=== PATIENT | male | born 1990 | race Caucasian/White ===

== ENCOUNTER 2020-02-20 19:56 | Emergency (ER) | payer MEDICAID, SELFPAY ==
[2020-02-20 19:58] VITALS: BP 128/78; PULSE 100; RESP 18; TEMP 36.6; O2SAT 98; BMI 23.0
[2020-02-20 20:44] LABS: Absolute Lymphocyte Count 2.47 X10^3/uL (0.83-4.51); Basophil# 0.07 X10^3/uL; Basophil% 0.8 % (0-1); Eosinophil# 0.16 X10^3/uL; Eosinophils% 1.9 % (0-5); Hematocrit 38.9 % (40-54); Hemoglobin 12.4 g/dL (13.0-16.5); Lymphocyte # 2.47 X10^3/ul (4.0); Lymphocyte % 29.1 % (19-41); Mean Corp Hgb Conc 31.9 g/dL (32-36); Mean Corpuscular Volume 91.1 fL (80-94); Mean Platelet Vol. 9.4 fl (6.2-12.0); Monocyte# 0.78 X10^3/uL; Monocyte% 9.2 % (0-10); NRBC Flagged by Analyzer 0 % (0-5); Neutrophil # 4.98 X10^3/uL (2.7-7.7); Neutrophil % 58.6 % (47-70); POSITIVE MORPHOLOGY YES; Platelet Count 339 K/mm3 (150-450); RBC Distribution Width CV 14.1 % (11.6-14.6); RBC Distribution Width SD 46.3 fl (35.1-43.9); Red Blood Count 4.27 M/mm3 (4.6-6.2); White Blood Count 8.5 K/mm3 (4.4-11.0)
[2020-02-20] MEDS: 0.9% Normal Saline 1,000 ML 1000 ML IV ×2 (20:48→21:36)
[2020-02-20 20:53] LABS: Differential Indicated SCAN CRITERIA MET
[2020-02-20 21:11] LABS: Differential Comment SCANNED
[2020-02-20 21:30] LABS: Anion Gap 11 (5-15); BUN 18 mg/dL (7-18); BUN/Creat Ratio 13.7 RATIO (10-20); Calcium,Total 8.6 mg/dL (8.5-10.1); Chloride 100 mmol/L (98-107); Creatinine, Serum 1.31 mg/dL (0.70-1.30); EST Glomerular Filtration Rate 68 mL/min (>60); Est Glom Filt Rate - Afr Amer 82 mL/min (>60); Estimated Creatinine Clearance 86.49 ml/min; Glucose 469 mg/dL (74-106); Sodium Level 134 mmol/L (136-145)
--- NOTE | 2020-02-20 21:46 | ED.DCSUM_ITS ---
- ER Visit Summary Date of Service: 02/20/20 Chief Complaint: Elevated blood sugar History of Present Illness: The patient is a 29 M who reports that he moved to [place] from [place] 1 week ago. He does not have his glucose test strips. States he has had type 1 diabetes since 2007. He is supposed to be on 20 units of NovoLog 3 times daily with a sliding scale. Without his test strips he has not been doing his sliding scale. He is also on 30 units of Lantus nightly. Patient reports that his last dose of each of his insulins was an hour and a half ago. He reports he has been urinating frequently, but he denies polydipsia. He complains of a headache that 6 out of 10 severity. He has diabetic neuropathy. He denies any new numbness or weakness. His review of systems is otherwise negative. Physical Examination: Vitals: Stable. Afebrile. General: Well-nourished and well-developed. Head: Normocephalic atraumatic. Neck: Supple, no lymphadenopathy. No JVD. Nontender. Cardiovascular: Regular rate and rhythm. No murmurs. Respiratory: No respiratory distress. Clear to auscultation bilaterally. Abdominal: Soft, nontender, nondistended, normal bowel sounds. No guarding, rebound, or peritoneal signs. Back: Nontender. Extremities: Nontender, no edema. Skin: Normal color, no rash. Neurologic: Alert and oriented ?3. Cranial nerves II through XII are intact. Normal strength and sensation. Psych: Normal affect. Test Results: CBC shows an H&H 12.4 and 38.9. Chem-7 shows a sodium 134, glucose of 469, creatinine 1.31. His bicarb and anion gap are normal. His serum ketones are negative. Emergency Department Course and Treatment: Patient was given 2 L of normal saline. I did not give him any further insulin because he had taken NovoLog and Lantus just prior to arrival. Treatment Plan: Patient will be discharged with a prescription for glucose test strips. Instructed to resume taking his NovoLog as directed with a sliding scale. Instructed to follow-up with Dr. Dallas Ramirez iii in 1 to 2 weeks for another exam. Return to the emergency department for any worsening symptoms. Disposition: To home in improved and stable condition. Impression: 1. Hyperglycemia. 2. Type 1 diabetes mellitus. This note was generated with [employer] software. It may contain incorrect words, spelling, and punctuation that were not noted in review of the chart prior to signing ED Disposition - Plan for ED Patient: Disposition: Home or Assisted Living Instructions: ED Diabetic Hyperglycemia Prescriptions: Blood Sugar Diagnostic [Glucose Test Strip] 1 ea MC 4X/DAY #120 strip Prescription Printed Referrals: Dallas Ramirez III, MD [STAFF PHYSICIAN] - 1-2 Weeks
[2020-02-20 22:16] VITALS: BP 124/80; PULSE 88; RESP 16; O2SAT 98
[2020-02-20 22:41] LABS: Bedside Glucose 429 mg/dL (70-110)
[2020-02-20 22:41] LABS: Bedside Glucose 290 mg/dL (70-110)
== END 2020-02-20 22:17 | disposition home or self-care (01) ==
PROVIDERS: Emergency Provider Emergency Medicine
DX: E10.65 Type 1 diabetes mellitus with hyperglycemia (principal); E10.40 Type 1 diabetes mellitus with diabetic neuropathy, unspecified; J45.909 Unspecified asthma, uncomplicated; Z79.4 Long term (current) use of insulin; Z72.0 Tobacco use
CPT/HCPCS: 80048; 82009; 82962; 85025; 96360; 99283; J7030; A4216

== ENCOUNTER 2020-03-08 16:55 | Emergency (ER) | payer MEDICAID, SELFPAY ==
[2020-03-08 16:56] VITALS: BP 133/82; PULSE 86; RESP 18; TEMP 36.7; O2SAT 99; BMI 24.3
--- NOTE | 2020-03-08 17:10 | ED.VISSUMM ---
- ER Visit Summary Date of Service: 03/08/20 Chief Complaint: Elevated blood sugar History of Present Illness: The patient is a 29 M who presents with elevated blood sugar that was noticed today. Patient states his glucose meter has been reading high. Patient states he took 40 units of Humalog between 1 and 2 hours prior to arrival. Patient states that he feels weak all over. Patient admits to some increased urination. Patient states she normally takes sliding scale insulin plus Humalog with his meals. Patient denies any chest pain. Patient denies any nausea or vomiting. Patient denies any shortness of breath. Physical Examination: Vital signs are stable. Patient is afebrile. Patient is in no acute distress. Oral mucosa is pink and moist. Neck is supple. Trachea is midline. There is no JVD noted. Heart was regular rate and rhythm. Lungs are clear and equal bilaterally. Abdomen is soft. Bowel sounds are normal. There is no tenderness. There is no rebound or guarding noted. Skin is warm dry. Cranial nerves II through XII are intact. There are no focal motor or sensory deficits noted. Extremities are intact. There is no calf tenderness or edema. Test Results: Comprehensive metabolic profile showed a glucose of 388. Alk phos was slightly elevated at 164. Serum acetone was negative. Emergency Department Course and Treatment: Patient was given IV fluids. Patient was given a dose of Humalog 15 units. Patient was resting comfortably on reevaluation. Prior to discharge, the patient felt like his blood sugar was getting low. BGT was obtained and was 52. Patient was given a regular diet. BGT will be rechecked prior to discharge. Patient was instructed to follow-up with his primary care physician in 5 to 7 days. Patient understood and was agreeable with the plan. All questions were answered. Disposition: Discharge home Impression: 1. Hyperglycemia This note was generated with [employer] dictation software. It may contain incorrect words, spelling, and punctuation that were not noted in review of the chart prior to signing ED Disposition - Plan for ED Patient: Disposition: Home or Assisted Living Diagnosis: Hyperglycemia Instructions: ED Diabetic Hyperglycemia Referrals: Care Physician,No Primary [Primary Care Provider] - Mai Ahumada [NON-STAFF] - 3-5 Days
[2020-03-08] MEDS: 0.9% Normal Saline 1,000 ML 1000 ML IV (17:25)
[2020-03-08 17:26] VITALS: O2SAT 96
[2020-03-08 17:33] LABS: Absolute Lymphocyte Count 1.68 X10^3/uL (0.83-4.51); Absolute Neutrophil Count 4.1 X10^3/uL (2.0-7.7); Basophil# 0.07 X10^3/uL; Basophil% 1.1 % (0-1); Eosinophil# 0.11 X10^3/uL; Eosinophils% 1.7 % (0-5); Hemoglobin 12.6 g/dL (13.0-16.5); Lymphocyte # 1.68 X10^3/ul (4.0); Lymphocyte % 25.8 % (19-41); Mean Corp Hgb Conc 33.2 g/dL (32-36); Mean Corpuscular Volume 87.6 fL (80-94); Mean Platelet Vol. 9.1 fl (6.2-12.0); Monocyte# 0.52 X10^3/uL; NRBC Flagged by Analyzer 0 % (0-5); Neutrophil # 4.11 X10^3/uL (2.7-7.7); Neutrophil % 63.1 % (47-70); Platelet Count 353 K/mm3 (150-450); RBC Distribution Width CV 13.9 % (11.6-14.6); RBC Distribution Width SD 44.3 fl (35.1-43.9); Red Blood Count 4.34 M/mm3 (4.6-6.2); White Blood Count 6.5 K/mm3 (4.4-11.0)
[2020-03-08 17:56] LABS: ALB/GLOB Ratio 0.9 RATIO (0.9-2.4); AST(SGOT) 20 U/L (15-37); Alanine Aminotransfer ALT/SGPT 36 U/L (16-61); Albumin, Serum 3.3 g/dL (3.2-5.0); Alkaline Phosphatase 164 U/L (45-117); Anion Gap 9 (5-15); BUN 18 mg/dL (7-18); BUN/Creat Ratio 16.4 RATIO (10-20); Calcium,Total 8.9 mg/dL (8.5-10.1); Chloride 99 mmol/L (98-107); EST Glomerular Filtration Rate 83 mL/min (>60); Est Glom Filt Rate - Afr Amer 100 mL/min (>60); Globulin 3.6 g/dL (2.2-4.2); Glucose 388 mg/dL (74-106); Protein, Total 6.9 g/dL (6.4-8.2); Sodium Level 133 mmol/L (136-145)
--- NOTE | 2020-03-08 18:05 | RAD_ITS ---
STUDY: X-RAY CHEST REASON FOR EXAM: Male, 29 years old. HYPERGLYCEMIA, HX ASTHMA TECHNIQUE: 2 AP portable view of the chest. COMPARISON: None. FINDINGS: The lungs are clear and expanded. There is no demonstrated pleural abnormality. Normal size heart. Normal mediastinum and giacomo. Normal visualized pulmonary arteries. Normal visualized aortic arch and descending thoracic aorta. Normal visualized thoracic spine. Normal visualized ribs, clavicles, and shoulders. There is no demonstrated abnormality of the visualized soft tissue structures of the upper abdomen. RAD/CXR for Line Placement IMPRESSION: Normal x-ray examination of the chest. Electronically Signed: Bandar Jurado MD at 19:09 EDT , Service support ,
[2020-03-08 18:27] VITALS: BP 111/72; PULSE 76; RESP 16; O2SAT 99
[2020-03-08 19:16] VITALS: BP 89/53; PULSE 77; RESP 20; O2SAT 99
[2020-03-08 19:18] LABS: Bacteria 0 SEEN /hpf (None Seen); Mucous, Urine 0 SEEN /hpf (<or=2+); Red Blood Cells-Urine 0 SEEN /hpf (0-5); Squamous Epithelial Cells - UA 0 SEEN /hpf (0-5); White Blood Cells 0 SEEN /hpf (0-5)
[2020-03-08] MEDS: Insulin Lispro 100 UNIT/ML INSULN.PEN 15 UNIT SC (19:19)
[2020-03-08 19:20] LABS: Color, Urine Yellow (Yellow); Glucose, Dipstick 1000 mg/dl (Normal); Ketone-Dipstick 5 mg/dl (Negative); Leukocyte Esterase-Dipstick Negative /ul (Negative); Nitrite-Dipstick Negative (Negative); Occult Blood-Urine Negative /ul (Negative); Protein-Dipstick Negative (Negative); Specific Gravity, Urine 1.015 (1.002-1.030); Urine Bilirubin Dipstick Negative (Negative); Urine Clarity Clear (Clear); Urine Urobilinogen Normal (Normal)
[2020-03-08 21:16] LABS: Bedside Glucose 52 mg/dL (70-110)
[2020-03-08 21:45] LABS: Bedside Glucose 81 mg/dL (70-110)
[2020-03-08 21:49] VITALS: BP 113/69; RESP 18
[2020-03-09 07:00] LABS: Bedside Glucose > 500 mg/dL (70-110)
== END 2020-03-08 21:49 | disposition home or self-care (01) ==
PROVIDERS: Emergency Provider Emergency Medicine
DX: E11.65 Type 2 diabetes mellitus with hyperglycemia (principal); E11.40 Type 2 diabetes mellitus with diabetic neuropathy, unspecified; Z79.4 Long term (current) use of insulin; J45.909 Unspecified asthma, uncomplicated; Z72.0 Tobacco use; Z79.899 Other long term (current) drug therapy; R35.0 Frequency of micturition; R35.8 Other polyuria
CPT/HCPCS: 71045; 80053; 81001; 82009; 82962; 85025; 96360; 96361; 99285; J7030; A4216

== ENCOUNTER 2020-04-08 15:55 | Emergency (ER) | payer MEDICAID, SELFPAY ==
[2020-04-08 15:58] VITALS: BP 125/75; PULSE 108; RESP 16; TEMP 36.1; O2SAT 96; BMI 24.4
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
== END 2020-04-08 16:29 | disposition home or self-care (01) ==
PROVIDERS: Emergency Provider Emergency Medicine
DX: Z76.0 Encounter for issue of repeat prescription (principal); E11.9 Type 2 diabetes mellitus without complications; I10 Essential (primary) hypertension; J45.909 Unspecified asthma, uncomplicated; Z72.0 Tobacco use; Z79.4 Long term (current) use of insulin; Z79.899 Other long term (current) drug therapy
CPT/HCPCS: 99282

== ENCOUNTER 2020-04-26 06:42 | Emergency (ER) | payer MEDICAID, SELFPAY ==
[2020-04-26 06:43] VITALS: BP 116/76; PULSE 80; RESP 18; TEMP 36.2; O2SAT 99; BMI 25.0
--- NOTE | 2020-04-26 07:03 | RAD_ITS ---
STUDY: X-RAY CHEST REASON FOR EXAM: Male, 29 years old. SOB X 2 DAYS TECHNIQUE: Single AP portable view of the chest. COMPARISON: Comparison is made with prior study dated March 08, 2020. FINDINGS: EKG electrodes are seen. The lungs are clear and expanded. There is no demonstrated pleural abnormality. Normal size heart. Normal mediastinum and giacomo. Normal visualized pulmonary arteries. Normal visualized aortic arch and descending thoracic aorta. Normal visualized thoracic spine. Normal visualized ribs, clavicles, and shoulders. There is no demonstrated abnormality of the visualized soft tissue structures of the upper abdomen. RAD/Chest 1 View (Portable) IMPRESSION: Normal x-ray examination of the chest. Electronically Signed: Derrick Corado, at 8:34 EDT , Service support ,
[2020-04-26 07:44] LABS: Bacteria 0 SEEN /hpf (None Seen); Mucous, Urine 0 SEEN /hpf (<or=2+); Red Blood Cells-Urine 0 SEEN /hpf (0-5); White Blood Cells 0 SEEN /hpf (0-5)
[2020-04-26 07:46] LABS: Color, Urine Yellow (Yellow); Glucose, Dipstick 1000 mg/dl (Normal); Leukocyte Esterase-Dipstick Negative /ul (Negative); Nitrite-Dipstick Negative (Negative); Occult Blood-Urine Negative /ul (Negative); Protein-Dipstick Negative (Negative); Urine Bilirubin Dipstick Negative (Negative); Urine Clarity Clear (Clear); Urine Urobilinogen Normal (Normal)
[2020-04-26 07:46] LABS: Bedside Glucose 380 mg/dL (70-110)
--- NOTE | 2020-04-26 07:51 | ED.VIS.GEN ---
History of Present Illness Chief Complaint: Sore Throat Informant: Patient Onset: Yesterday Context: Gradual Onset Narrative: Patient is a 29-year-old male with history of type 1 diabetes mellitus presenting with sore throat and fatigue. Patient states he is had sore throat for the past few days. He states 3 days ago he went on a walk in the heat and that seemed to bother him. He states he feels short of breath but is because it hurts to breathe because his throat hurts. He denies any associated nasal congestion, fever, nausea or vomiting. He states he has a cough but it is because his throat is irritated. He does have a history of diabetes and states his blood sugar at 12:40 AM this morning was high. Patient not have an insulin pump. He cannot tell me what his blood sugars normally are. He denies any other complaints at this time. Past Medical History - Allergies and Home Meds Allergies/Adverse Reactions: Allergies No Known Allergies Allergy (Verified 04/26/20 07:31) Primary Care Physician: Care Physician,No Primary [Primary Care Provider] - Past Medical History: - - Diabetes mellitus type I Lives: Spouse/ Significant Other Smoking Status: Current every day smoker Review of Systems General: Reports: Malaise. Denies: Chills, Fever, Sweats Eyes: Denies: Visual changes - bilaterally, Diplopia ENT: Reports: Sore throat. Denies: Rhinorrhea Cardiovascular: Denies: Chest pain, Palpitations Respiratory: Denies: Dyspnea, Cough, Dyspnea on exertion Gastrointestinal: Denies: Abdominal pain, Nausea, Vomiting, Diarrhea, Melena, Hematochezia Genitourinary: Denies: Dysuria, Hematuria, Frequency Musculoskeletal: Denies: Back pain, Extremity Pain Skin: Denies: Rash, Wounds Neurological: Denies: Headache, Weakness, Numbness Physical Exam Vital Signs/Narrative: Vital Signs Temp Pulse Resp BP Pulse Ox 04/26/20 06:43 97.1 F L 80 18 116/76 99 Inital Vital Signs reviewed: Yes General: Well nourished, Well developed, No Acute Distress Head: Normocephalic, Atraumatic Eyes: Perrl, EOMI ENT: Moist mucous membranes, No rhinorrhea, TM's clear, - - Mild erythema of the oropharynx, significant edema. No exudate. Uvula is midline.. Negative for: Nasal congestion Neck: Supple, Nontender, No JVD Cardiovascular: Regular rate, Regular rhythm, No murmurs Respiratory: No distress, CTA bilaterally, Chest nontender Abdomen: Soft, Nontender, Nondistended, Normal bowel sounds Back: Nontender, Normal Inspection Extremities: Nontender, No edema Skin: Normal color, No rash Neurological: Alert, Oriented x3, Cranial nerves II-XII grossly intact, Normal Strength, Normal Sensation Psychological: Normal affect, Normal Mood Diagnostic/Tx/Re-eval Chest X-Ray - ED: 1 View, Read by ED Physician, Read by Radiologist, No Acute Disease Clinical Impression(s) from Imaging Studies Chest X-Ray 04/26/20 07:03 IMPRESSION: Normal x-ray examination of the chest. Electronically Signed: Derrick Corado, at 8:34 EDT , Service support , Laboratory Data 04/26/20 04/26/20 04/26/20 07:27 07:30 07:53 WBC 13.1 H RBC 4.43 L Hgb 13.0 Hct 39.6 L MCV 89.4 MCH 29.3 MCHC 32.8 RDW Std Deviation 40.9 RDW Coeff of Nicole 12.4 Plt Count 292 MPV 9.7 Immature Gran % (Auto) 0.500 Neut % (Auto) 78.0 H Lymph % (Auto) 10.5 L Rush % (Auto) 9.0 Eos % (Auto) 1.5 Baso % (Auto) 0.5 Absolute Neuts (auto) 10.2 H Absolute Lymphs (auto) 1.38 Nucleated RBC % 0 Sodium Potassium Chloride Carbon Dioxide Anion Gap BUN Creatinine Estim Creat Clear Calc Est GFR (MDRD) Af Amer Est GFR (MDRD) Non-Af BUN/Creatinine Ratio Glucose Calcium Urine Color Yellow Urine Clarity Clear Urine pH 7.0 Ur Specific Warren 1.010 Urine Protein Negative Urine Glucose (UA) 1000 H Urine Ketones 150 H Urine Occult Blood Negative Urine Nitrite Negative Urine Bilirubin Negative Urine Urobilinogen Normal Ur Leukocyte Esterase Negative Urine RBC 0 SEEN Urine WBC 0 SEEN Ur Squamous Epith Cells 0-5 SEEN Urine Bacteria 0 SEEN Urine Mucus 0 SEEN Acetone Level POC Glucose 380 H 07/08/20 07/08/20 07/08/20 07:53 07:53 10:05 WBC RBC Hgb Hct MCV MCH MCHC RDW Std Deviation RDW Coeff of Nicole Plt Count MPV Immature Gran % (Auto) Neut % (Auto) Lymph % (Auto) Rush % (Auto) Eos % (Auto) Baso % (Auto) Absolute Neuts (auto) Absolute Lymphs (auto) Nucleated RBC % Sodium 135 L Potassium 4.3 Chloride 100 Carbon Dioxide 28.0 Anion Gap 7 BUN 12 Creatinine 0.72 Estim Creat Clear Calc 158.33 Est GFR (MDRD) Af Amer 164 Est GFR (MDRD) Non-Af 136 BUN/Creatinine Ratio 16.8 Glucose 347 H Calcium 8.8 Urine Color Urine Clarity Urine pH Ur Specific Warren Urine Protein Urine Glucose (UA) Urine Ketones Urine Occult Blood Urine Nitrite Urine Bilirubin Urine Urobilinogen Ur Leukocyte Esterase Urine RBC Urine WBC Ur Squamous Epith Cells Urine Bacteria Urine Mucus Acetone Level SMALL H POC Glucose 389 H - Medical Decision Making Evaluated for generalized malaise and sore throat. He is a type I diabetic and states his blood sugars been running high lately. Patient is given 2 L of IV fluid. Strep swab is negative. He has signs of dehydration and small acetone but he does not appear to be in DKA. Repeat blood sugar after the fluids is 389. Patient is a mild leukocytosis of 13.1. No obvious pneumonia or UTI. Abdomen is soft and nontender. Patient is feeling better after IV fluids. He is counseled that likely has a viral pharyngitis. He is offered sliding-scale insulin for his blood sugar at discharge but declined stating he would rather just go home and take his insulin right before he eats. Patient is tolerating p.o. in the emergency room. He does not have a PCP as he is only been the area for 2 months. He is [facility] for [facility]. He is given return precautions. Patient verbalized agreement understand with this plan. He is discharged home in stable condition. ED Disposition - Plan for ED Patient: Disposition: Home or Assisted Living Diagnosis: Hyperglycemia due to type 1 diabetes mellitus, Dehydration, Viral pharyngitis Instructions: ED Pharyngitis Viral, ED Diabetic Hyperglycemia, ED Dehydration Adult Referrals: Mai Ahumada [NON-STAFF] - Additional Instructions: Please make sure you check your blood sugar when you get home and take an appropriate amount of insulin to prevent further hyperglycemia. Alternate Tylenol and ibuprofen as needed for your sore throat.
[2020-04-26 07:55] LABS: Ketone-Dipstick 150 mg/dl (Negative)
[2020-04-26 07:57] LABS: Squamous Epithelial Cells - UA 0-5 SEEN /hpf (0-5)
[2020-04-26] MEDS: 0.9% Normal Saline 1,000 ML 999 ML IV ×2 (07:59→09:08)
[2020-04-26 08:00] LABS: Absolute Lymphocyte Count 1.38 X10^3/uL (0.83-4.51); Absolute Neutrophil Count 10.2 X10^3/uL (2.0-7.7); Basophil# 0.07 X10^3/uL; Basophil% 0.5 % (0-1); Eosinophils% 1.5 % (0-5); Hematocrit 39.6 % (40-54); Lymphocyte # 1.38 X10^3/ul (4.0); Lymphocyte % 10.5 % (19-41); Mean Corp Hgb Conc 32.8 g/dL (32-36); Mean Corpuscular Hgb 29.3 pg (27.0-32.0); Mean Corpuscular Volume 89.4 fL (80-94); Mean Platelet Vol. 9.7 fl (6.2-12.0); Monocyte# 1.18 X10^3/uL; NRBC Flagged by Analyzer 0 % (0-5); Neutrophil # 10.21 X10^3/uL (2.7-7.7); Platelet Count 292 K/mm3 (150-450); RBC Distribution Width CV 12.4 % (11.6-14.6); RBC Distribution Width SD 40.9 fl (35.1-43.9); Red Blood Count 4.43 M/mm3 (4.6-6.2); White Blood Count 13.1 K/mm3 (4.4-11.0)
[2020-04-26] MEDS: Ketorolac 15 MG/ML Vial IV (08:09)
[2020-04-26 08:12] LABS: Anion Gap 7 (5-15); BUN 12 mg/dL (7-18); BUN/Creat Ratio 16.8 RATIO (10-20); Calcium,Total 8.8 mg/dL (8.5-10.1); Chloride 100 mmol/L (98-107); Creatinine, Serum 0.72 mg/dL (0.70-1.30); EST Glomerular Filtration Rate 136 mL/min (>60); Est Glom Filt Rate - Afr Amer 164 mL/min (>60); Estimated Creatinine Clearance 158.33 ml/min; Glucose 347 mg/dL (74-106); Potassium 4.3 mmol/L (3.5-5.1); Sodium Level 135 mmol/L (136-145)
[2020-04-26 10:11] LABS: Bedside Glucose 389 mg/dL (70-110)
[2020-04-26 10:33] VITALS: BP 100/79; PULSE 64; RESP 15; O2SAT 99
== END 2020-04-26 10:35 | disposition home or self-care (01) ==
PROVIDERS: Emergency Provider Emergency Medicine
DX: J02.9 Acute pharyngitis, unspecified (principal); E10.65 Type 1 diabetes mellitus with hyperglycemia; E86.0 Dehydration; F17.200 Nicotine dependence, unspecified, uncomplicated
CPT/HCPCS: 71045; 80048; 81001; 82009; 82962; 85025; 87077; 87880; 96361; 96374; 99285

== ENCOUNTER 2020-05-04 14:17 | Emergency (ER) | payer MEDICAID, SELFPAY ==
[2020-05-04 14:17] VITALS: BP 121/66; PULSE 89; RESP 18; TEMP 36.6; O2SAT 97; BMI 24.0
--- NOTE | 2020-05-04 14:50 | ED.DCSUM_ITS ---
History of Present Illness Chief Complaint: Dental Informant: Patient Narrative: Patient is a 29-year-old male who presents to the emergency department for dental pain. This started 3 days ago. Majority the pain is in the right lower jaw. He has had a history of dental infections in the past. He denies any systemic symptoms including fever/chills or nausea/vomiting. He states that his blood sugars have been running high. He is a known diabetic. States that his blood glucose monitor has been reading HI. He has been in DKA before in the past and he does not feel like he is in this currently. He has been taking ibuprofen for the pain but has not been giving him much relief. He is a current everyday smoker. Denies alcohol or drug use. Denies any issues with swallowing. No shortness of breath. No difficulty handling secretions. Past Medical History - Allergies and Home Meds Allergies/Adverse Reactions: Allergies No Known Allergies Allergy (Verified 05/04/20 14:20) Primary Care Physician: Joanna Sanches MD [STAFF PHYSICIAN] - 2 Days Past Medical History: - - Diabetes, asthma Smoking Status: Current every day smoker Alcohol: None Drugs: None Review of Systems All systems negative except as indicated General: Denies: Chills, Fever, Sweats Eyes: Denies: Visual changes - bilaterally, Diplopia ENT: Denies: Bilateral ear pain, Rhinorrhea, Sore throat Cardiovascular: Denies: Chest pain, Palpitations Respiratory: Denies: Dyspnea, Cough, Dyspnea on exertion Gastrointestinal: Denies: Abdominal pain, Nausea, Vomiting, Diarrhea, Melena, Hematochezia Genitourinary: Denies: Dysuria, Hematuria, Frequency Musculoskeletal: Denies: Back pain, Extremity Pain Skin: Denies: Rash, Wounds Neurological: Denies: Headache, Weakness, Numbness Physical Exam Vital Signs/Narrative: Vital Signs Temp Pulse Resp BP Pulse Ox 05/04/20 14:17 98 F 89 18 121/66 H 97 Inital Vital Signs reviewed: Yes General: Well nourished, Well developed, No Acute Distress Head: Normocephalic, Atraumatic Eyes: Perrl, EOMI ENT: Moist mucous membranes, No rhinorrhea, - - Patient has very poor dentition with multiple caries. Multiple missing teeth. No obvious abscess present. Oropharynx is clear. No muffled voice. No drooling. Neck: Supple, Nontender Cardiovascular: Regular rate, Regular rhythm, No murmurs Respiratory: No distress, CTA bilaterally, Chest nontender Abdomen: Soft, Nontender, Nondistended, Normal bowel sounds Back: Nontender, Normal Inspection Extremities: Nontender, No edema Skin: Normal color, No rash Neurological: Alert, Oriented x3, Cranial nerves II-XII grossly intact, Normal Strength, Normal Sensation Psychological: Normal affect, Normal Mood Diagnostic/Tx/Re-eval - Medical Decision Making Patient presents emerge department for dental pain. He has had dental abscesses before in the past. Never required drainage. Does not follow regularly with a dentist. Because he states that his blood sugars have been reading high we will check a [id number] glucose now. We will give the patient penicillin for treatment. Will give referral for a dentist. Patient's blood sugar was in the 500s. Did offer to place a IV and give IV fluids but he states he feels very well and is refusing this. We will give a dose of subcu insulin and recheck his blood sugar. He is given first dose of penicillin here in the emergency department. Will be sent home with prescription. He is to follow-up with his PCP. He is requesting a glucometer as his have not been reading well lately. I did discuss risk associated with continued to have his blood sugar elevated. Every time he has been here his blood sugar has been in the 3-400s. I did make a referral for PCP as well as the dentist. This time will discharge home in stable condition. Warning signs and symptoms for which to return to the emerge department are reviewed. He understands and is agreeable with this plan. ED Disposition - Plan for ED Patient: Disposition: Home or Assisted Living Diagnosis: Dental abscess, Hyperglycemia Instructions: Dental Abscess, ED Diabetic Hyperglycemia Prescriptions: Penicillin V Potassium 500 mg PO 4X/DAY #40 tab Transmission Status: Pending to [facility]30 Referrals: Joanna Sanches MD [STAFF PHYSICIAN] - 2 Days Additional Instructions: Please follow-up with dentist from provided list.
[2020-05-04 15:00] LABS: Bedside Glucose > 500 mg/dL (70-110)
[2020-05-04 15:01] VITALS: BP 132/76; PULSE 93; RESP 18; TEMP 37.2; O2SAT 97
[2020-05-04] MEDS: Penicillin Vk 250 MG Tablet 500 MG PO (15:26)
[2020-05-04] MEDS: Insulin Lispro 100 UNIT/ML INSULN.PEN 8 UNIT SC (15:28)
[2020-05-04 15:42] LABS: Absolute Lymphocyte Count 2.26 X10^3/uL (0.83-4.51); Basophil# 0.05 X10^3/uL; Basophil% 0.6 % (0-1); Eosinophil# 0.18 X10^3/uL; Eosinophils% 2.2 % (0-5); Hematocrit 37.1 % (40-54); Hemoglobin 12.1 g/dL (13.0-16.5); Lymphocyte # 2.26 X10^3/ul (4.0); Mean Corp Hgb Conc 32.6 g/dL (32-36); Mean Corpuscular Hgb 28.7 pg (27.0-32.0); Mean Corpuscular Volume 88.1 fL (80-94); Mean Platelet Vol. 9.6 fl (6.2-12.0); Monocyte# 0.86 X10^3/uL; Monocyte% 10.3 % (0-10); NRBC Flagged by Analyzer 0 % (0-5); Neutrophil % 59.7 % (47-70); Platelet Count 325 K/mm3 (150-450); RBC Distribution Width CV 12.3 % (11.6-14.6); RBC Distribution Width SD 39.5 fl (35.1-43.9); Red Blood Count 4.21 M/mm3 (4.6-6.2); White Blood Count 8.4 K/mm3 (4.4-11.0)
[2020-05-04 16:11] LABS: Anion Gap 4 (5-15); BUN 16 mg/dL (7-18); BUN/Creat Ratio 15.1 RATIO (10-20); Calcium,Total 8.1 mg/dL (8.5-10.1); Chloride 99 mmol/L (98-107); Creatinine, Serum 1.06 mg/dL (0.70-1.30); EST Glomerular Filtration Rate 86 mL/min (>60); Est Glom Filt Rate - Afr Amer 104 mL/min (>60); Estimated Creatinine Clearance 107.54 ml/min; Glucose 486 mg/dL (74-106); Potassium 4.6 mmol/L (3.5-5.1); Sodium Level 132 mmol/L (136-145)
[2020-05-04 16:28] VITALS: BP 113/70; PULSE 72; RESP 17; O2SAT 100
[2020-05-04 16:33] VITALS: BP 116/68; PULSE 73; RESP 19; TEMP 36.8; O2SAT 99
== END 2020-05-04 16:40 | disposition home or self-care (01) ==
PROVIDERS: Emergency Provider Emergency Medicine
DX: K04.7 Periapical abscess without sinus (principal); E11.65 Type 2 diabetes mellitus with hyperglycemia; J45.909 Unspecified asthma, uncomplicated; F17.200 Nicotine dependence, unspecified, uncomplicated; Z79.4 Long term (current) use of insulin; Z79.899 Other long term (current) drug therapy
CPT/HCPCS: 80048; 82962; 85025; 99283; A4216

== ENCOUNTER 2020-05-21 18:51 | Emergency (ER) | payer MEDICAID, SELFPAY ==
[2020-05-21 18:52] VITALS: BP 115/73; PULSE 85; RESP 16; TEMP 37.1; O2SAT 99; BMI 24.0
--- NOTE | 2020-05-21 19:43 | ED.DCSUM_ITS ---
- ER Visit Summary Date of Service: 05/21/20 Chief Complaint: Left buttock pain History of Present Illness: The patient is a 29 M type 1 diabetes. He states for 2 to 3 days has had a not on his left upper buttock. Denies any fever or chills. Complaining of pain. No prior history. Denies any drainage. Denies any other symptoms. Physical Examination: Young male complaining of pain vital signs stable afebrile. H EENT exam unremarkable. Neck nontender no lymphadenopathy. Lungs clear to auscultation bilaterally. Heart regular rhythm no murmur. Abdomen soft nontender normal bowel sounds no peritoneal signs. Extremities moves all 4. Calves are nontender without edema or cords. Dorsi plantarflexion intact. Normal program support assistant strength. Back nontender. Left buttock up near the crease there is a nodular area that feels solid consistent with either a pilonidal cyst or a p ilonidal abscess. It is tender to palpation. There is no cellulitis. Test Results: None Emergency Department Course and Treatment: Discussed with patient at length that this is either a pilonidal cyst or abscess. I explained that we need to I&D this and start him on antibiotics. He absolutely refused any I&D said it was too painful. I explained to him we can take care of his pain while were doing the procedure. He also denied an aspiration. He states he went to do warm soaks at home and just wants an antibiotic. I told him we can do that but almost assuredly he will end up back in here with this being larger and worse. Again he denies any type of I&D or aspiration. Treatment Plan: Tylenol and Motrin for pain. Keflex 4 times a day #30 no refill. Return when this gets worse and is too painful to have it drained like I have recommended today. Disposition: Discharge Impression: Left buttock pilonidal abscess History of type 1 diabetes Patient refused incision and drainage This note was generated with [employer] dictation software. It may contain incorrect words, spelling, and punctuation that were not noted in review of the chart prior to signing ED Disposition - Plan for ED Patient: Referrals: Mai Ahumada [Primary Care Provider] -
--- NOTE | 2020-05-21 19:45 | ED.DEP ---
ED Disposition - Plan for ED Patient: Disposition: Home or Assisted Living Instructions: ED Cyst Pilonidal Infec Abx Only Prescriptions: Cephalexin [Keflex] 500 mg PO Q6 #30 cap Prescription Printed Referrals: Mai Ahumada [Primary Care Provider] - As soon as possible Additional Instructions: Return the emergency department when this becomes too painful or you are feeling worse. This is either a pilonidal cyst or a pilonidal abscess and will need incision and drainage almost assuredly. Tylenol Motrin for pain. Keflex 4 times a day till gone. The antibiotic alone may not take care of this and most likely will not.
== END 2020-05-21 19:53 | disposition home or self-care (01) ==
PROVIDERS: Emergency Provider Emergency Medicine
DX: L05.01 Pilonidal cyst with abscess (principal); E10.9 Type 1 diabetes mellitus without complications; Z79.4 Long term (current) use of insulin; Z72.0 Tobacco use; Z79.899 Other long term (current) drug therapy
CPT/HCPCS: 99283

== ENCOUNTER 2020-05-25 07:06 | Emergency (ER) | payer MEDICAID, SELFPAY ==
[2020-05-25 07:07] VITALS: BP 117/100; PULSE 116; RESP 15; TEMP 36.6; O2SAT 99; BMI 25.1
[2020-05-25 07:17] VITALS: BP 117/100; PULSE 116; RESP 15; TEMP 36.6; O2SAT 99
--- NOTE | 2020-05-25 07:18 | ED.DCSUM_ITS ---
History of Present Illness Chief Complaint: Abscess Narrative: Patient presenting for evaluation due to I have a cyst on my left ass cheek. Patient informs me that this been going on over the course of about the last week. He reports that it started very small and he initially was trying to do warm soaks. He was here on the second, was evaluated and was recommended incision and drainage at that time. He stated that he wished not to have incision and drainage but wanted to try a course of antibiotics. He was placed on a course of Keflex, but despite this he still had worsening of the abscess with increase in pain. Patient denies to me that he has any constitutional symptoms such as fevers chills or sweats. He is never had any prior similar episodes in the past. Patient is a type I diabetic. Review of systems otherwise negative. Past Medical History - Allergies and Home Meds Allergies/Adverse Reactions: Allergies No Known Allergies Allergy (Verified 05/21/20 18:56) Primary Care Physician: Mai Ahumada [Primary Care Provider] - Prior records reviewed: Yes Past Medical History: - - Type 1 diabetes Surgical History: noncontributory Lives: With Family Smoking Status: Current every day smoker Alcohol: None Drugs: None Review of Systems General: Denies: Fever Eyes: Denies: Visual changes - bilaterally, Diplopia ENT: Denies: Rhinorrhea, Sore throat Cardiovascular: Denies: Chest pain, Palpitations Respiratory: Denies: Dyspnea, Cough, Dyspnea on exertion Gastrointestinal: Denies: Abdominal pain, Nausea, Vomiting, Diarrhea, Melena, Hematochezia Genitourinary: Denies: Dysuria, Hematuria, Frequency Musculoskeletal: Denies: Back pain, Extremity Pain Skin: Reports: Abscess Neurological: Denies: Headache, Weakness, Numbness Physical Exam Vital Signs/Narrative: Vital Signs Temp Pulse Resp BP Pulse Ox 05/25/20 07:17 97.8 F 116 H 15 117/100 H 99 05/25/20 07:07 97.8 F 116 H 15 117/100 H 99 Inital Vital Signs reviewed: Yes General: Well nourished, Well developed Head: Normocephalic, Atraumatic Eyes: EOMI ENT: Moist mucous membranes Neck: Nontender Cardiovascular: Regular rhythm, Tachycardia Respiratory: No distress Rectal: - - Chaperoned rectal exam shows a large left-sided perianal abscess starting at about the 10:00 portion of the anus extending up into the patient's gluteal cleft and his left buttock. Both induration and fluctuance are noted with overlying erythema. Extremities: Nontender Skin: Normal color Neurological: Alert, Oriented x3 Psychological: Normal affect Diagnostic/Tx/Re-eval - Medical Decision Making Patient presented secondary to a perianal abscess. This does not appear to track within the patient's rectum, and is outside of the border of the patient's anal sphincters, and I feel that it is safe to do emergency department incision and drainage. Patient does not have fever, I do not feel that further work-up is indicated. Incision and drainage was performed as noted in the procedure note. Patient tolerated this with some difficulty. Patient will follow-up with general surgery, Dr. Muñoz, I did contact Dr. Muñoz to ensure close follow- up. Patient will be discharged with a course of Bactrim as well as Percocet for pain control. Procedures Procedure(s): Patient underwent written consent for incision and drainage of a perianal abscess. He was placed in a prone position. He was premedicated with morphine. Area was anesthetized using 1% lidocaine, a total of 10 cc was utilized. The area was prepped with alcohol pads, a 11 blade was then utilized and the area of greatest fluctuance was incised approximately 2 cm. There was a large amount of foul-smelling purulent material that was expressed. Wound was probed with hemostats and then was irrigated with saline and Shur-Clens. Quarter-inch packing was then placed in the wound, patient tolerated this with some difficulty. ED Disposition - Plan for ED Patient: Disposition: Home or Assisted Living Diagnosis: Perianal abscess Instructions: ED ABSCESS Josefa-Anal IandD Prescriptions: Smz/Tmp Ds [Bactrim Ds] 1 tab PO BID #14 tab Prescription Printed Oxycodone HCl/Acetaminophen [Percocet 5/325] 1 tab PO Q6H PRN PRN 3 Days #12 tab PRN Reason: Pain Prescription Printed Referrals: Oswaldo Muñoz MD [STAFF PHYSICIAN] - 1 Day for another exam Additional Instructions: Soak your bottom in Epsom salt baths in as warm of water as you can tolerate
[2020-05-25] MEDS: Morphine 4 MG/ML Syringe IM (07:22)
[2020-05-25] MEDS: oxyCODONE 5 MG Tablet 10 MG PO (09:49)
[2020-05-25] MEDS: Smz/Tmp Ds Tablet 1 TABLET PO (09:49)
[2020-05-25 09:58] VITALS: BP 128/68; PULSE 86; RESP 18; O2SAT 96
== END 2020-05-25 09:59 | disposition home or self-care (01) ==
PROVIDERS: Emergency Provider Emergency Medicine
DX: K61.0 Anal abscess (principal); E10.9 Type 1 diabetes mellitus without complications; F17.200 Nicotine dependence, unspecified, uncomplicated; Z79.4 Long term (current) use of insulin; Z79.899 Other long term (current) drug therapy
CPT/HCPCS: 46050; 10060; 96372; 99283; J7030

== ENCOUNTER 2020-05-26 14:57 | Inpatient (IN) | payer MEDICAID, SELFPAY ==
[2020-05-25 07:07] VITALS: BMI 25.1
[2020-05-26] VITALS (14 sets, daily range): BP systolic 85–123; BP diastolic 45–76; PULSE 75–93; RESP 18–27; TEMP 36.7–36.9; O2SAT 96–100; BMI 25.3; BMI 23.9; BMI 24.0
--- NOTE | 2020-05-26 15:28 | ED.DCSUM_ITS ---
- ER Visit Summary Date of Service: 05/26/20 Chief Complaint: I feel dehydrated History of Present Illness: The patient is a 29 M type I insulin diabetes and asthma. Patient states he had an I&D of a left buttock cyst yesterday. Was placed on Bactrim. Patient states he just does not feel well today. Denies fever chills. Mild nausea. No vomiting or diarrhea. No dysuria. No melena. Physical Examination: Well-appearing 29-year-old no acute distress. Vital signs are stable and afebrile. Pulse ox 9% on room air no signs of hypoxia. He does not look septic or toxic. H EENT exam unremarkable. Moist extremities. Neck nontender no lymphadenopathy no meningismus. Lungs clear to auscultation bilaterally. Heart regular rhythm no murmur rate about 90. Abdomen soft nontender normal bowel sounds no peritoneal signs. Remedies moves all 4. Calves nontender without edema or cords. Back nontender. Skin unremarkable. Left buttock there is a area where there was an I&D of an abscess or cyst. Patient states it was initially packed but that was to fill out. There is still tenderness to the area. Mild swelling. But not truly fluctuant. Test Results: CBC normal 5. Hemoglobin 12. No bands. Chemistry sodium 133. CO2 is 16 gap of 20 glucose of 369 consistent with DKA. Serum ketones moderate. I was going obtain an ABG to clarify due to the patient should really be in 369 but he refused. Emergency Department Course and Treatment: Patient treated with IV fluids and Zofran. I discussed with him and offered to re-I&D the site since it is currently closed off and he still having discomfort which he adamantly refused and does not want another I&D. There is no cellulitis to the area. There is no obvious involvement of the anus or rectum. Second liter normal saline. Patient be started on insulin drip. Zofran for nausea. On repeat exam he had thrown up on the floor. I explained that we need to be admitted. I also offered him again to I&D the abscess on his buttock that was done the other day and he refused. Treatment Plan: Admission the ICU. Vivek Oconnor spoke to the hospitalist. Patient on insulin drip. Disposition: Admission Impression: Acute diabetic ketoacidosis Acute left buttock abscess patient refused I&D and this was done yesterday. History of type 1 diabetes. This note was generated with [employer] dictation software. It may contain incorrect words, spelling, and punctuation that were not noted in review of the chart prior to signing ED Disposition - Plan for ED Patient: Referrals: Mai Ahumada [Primary Care Provider] -
[2020-05-26] MEDS: 0.9% Normal Saline 1,000 ML 999 ML IV ×2 (15:30→19:00)
[2020-05-26 16:10] LABS: Absolute Lymphocyte Count 0.61 X10^3/uL (0.83-4.51); Basophil# 0.04 X10^3/uL; Basophil% 0.7 % (0-1); Eosinophil# 0.05 X10^3/uL; Eosinophils% 0.9 % (0-5); Hematocrit 40.8 % (40-54); Hemoglobin 12.9 g/dL (13.0-16.5); Lymphocyte # 0.61 X10^3/ul (4.0); Lymphocyte % 11.3 % (19-41); Mean Corp Hgb Conc 31.6 g/dL (32-36); Mean Corpuscular Volume 88.7 fL (80-94); Mean Platelet Vol. 9.2 fl (6.2-12.0); Monocyte# 0.67 X10^3/uL; Monocyte% 12.4 % (0-10); NRBC Flagged by Analyzer 0 % (0-5); Neutrophil # 4.03 X10^3/uL (2.7-7.7); Neutrophil % 74.3 % (47-70); Platelet Count 227 K/mm3 (150-450); RBC Distribution Width SD 41.9 fl (35.1-43.9); White Blood Count 5.4 K/mm3 (4.4-11.0)
[2020-05-26] MEDS: Ondansetron 4 MG/2 ML Vial IV ×2 (16:18→19:00)
[2020-05-26 16:24] LABS: Anion Gap 20 (5-15); BUN 9 mg/dL (7-18); BUN/Creat Ratio 9.8 RATIO (10-20); Calcium,Total 8.5 mg/dL (8.5-10.1); Chloride 97 mmol/L (98-107); Creatinine, Serum 0.92 mg/dL (0.70-1.30); EST Glomerular Filtration Rate 101 mL/min (>60); Est Glom Filt Rate - Afr Amer 122 mL/min (>60); Estimated Creatinine Clearance 123.91 ml/min; Glucose 369 mg/dL (74-106); Potassium 4.9 mmol/L (3.5-5.1); Sodium Level 133 mmol/L (136-145)
[2020-05-26 18:36] LABS: Bedside Glucose 407 mg/dL (70-110)
--- NOTE | 2020-05-26 19:00 | HP.PCM_ITS ---
Problem List (1) DKA (diabetic ketoacidoses) Status: Acute Qualifiers: Diabetes mellitus type: type 1 (2) Abscess Status: Acute (3) Hypertension Status: Chronic Qualifiers: Hypertension type: unspecified Qualified Code(s): I10 - Essential (primary) hypertension (4) Hyperlipidemia Status: Acute Qualifiers: Hyperlipidemia type: unspecified Qualified Code(s): E78.5 - Hyperlipidemia, unspecified (5) DM type 1 (diabetes mellitus, type 1) Status: Chronic Qualifiers: Diabetes mellitus complication status: with other specified complication Qualified Code(s): E10.69 - Type 1 diabetes mellitus with other specified complication History of Present Illness Date of Admission: 05/26/20 Chief Complaint: Feeling unwell, nausea and vomiting - ongoing for days Patient is a poor historian: The patient is a 29 year old M with past medical history of type I DM, complicated with neuropathy, hypertension, Hyperlipidemia who comes into the ED not feeling well and feeling dehydrated as well as nausea and vomiting. Patient was seen in the ED on 05/21/20 with left buttock abscess but refused I & D. He was discharged on Keflex. He returned back on 05/25/20 with worsening symptoms. He got I&D done and large amount of foul-smelling purulent material was expressed. Wound was packed. Patient complains of worsening pain in the left gluteal region. He denied any fever or chills. He complains of generally not feeling well. Vitals in the ED showed temperature of 98.5F, heart rate 89, blood pressure 116/76, respiratory rate 18, SPO2 100% on room air. WBC count is 5.4, hemoglobin is 12.9, platelet count is 227, sodium 133, potassium 4.9, chloride 97, bicarbonate 16, anion gap 20, BUN was 9, creatinine 0.92, glucose was 369. Acetone was moderate Past Medical History Past Medical History (Chronic Problems): Chronic Problems Hypertension (Chronic) DM type 1 (diabetes mellitus, type 1) (Chronic) Allergies No Known Allergies Allergy (Verified 05/26/20 15:03) Home Medications: Ambulatory Orders Medication Instructions Recorded Amitriptyline HCl 25 mg PO DAILY 03/08/20 Insulin Aspart [Novolog Flexpen 20 units SUBCUT TIDCM 03/08/20 ([facility])] Insulin Glargine [Lantus ([facility])] 30 units SUBCUT QHS 05/20/20 Lisinopril 5 mg PO DAILY 03/08/20 Pravastatin [Pravachol] 40 mg PO DAILY 03/08/20 traZODone [Desyrel] 50 mg PO DAILY 03/08/20 Albuterol Inhaler [Ventolin Hfa] 2 puff INHALATION Q4H PRN PRN #1 04/08/20 inhaler Blood Sugar Diagnostic [Glucose 1 ea MC 4X/DAY #120 strip 04/08/20 Test Strip] Gabapentin [Neurontin] 400 mg PO TID #90 cap 04/08/20 Oxycodone HCl/Acetaminophen 1 tab PO Q6H PRN PRN 3 Days #12 tab 05/25/20 [Percocet 5/325] Smz/Tmp Ds [Bactrim Ds] 1 tab PO BID #14 tab 05/25/20 Surgical History: tonsillectomy - and adenoidectomy Psychiatric History: No pertinent psych hx Lives: Homeless Smoking Status: Current every day smoker Tobacco Use: Cigarettes Alcohol: None Drugs: None - *Family History Maternal History Items: COPD Paternal History Items: No pertinent history Review of Systems Constitutional: Reports: Anorexia, Malaise, Weakness, Fatigue. Denies: Chills, Fever, Weight Change Eyes: Denies: Blurred vision, Cataracts, Conjunctivae Inflammation, Pain, Redness, Vision Change HEENT: Denies: Difficulty Hearing, Difficulty Swallowing, Head Aches, Sinus Congestion, Sinus Drainage, Sore Throat Cardiovascular: Denies: Chest Pain, Claudication, Orthopnea, Palpitations, Paroxysmal Noc. Dyspnea Respiratory: Denies: Cough, Hemoptysis, Shortness of Breath, Shortness of breath at rest, Shortness of breath upon exertion, Sputum production Gastrointestinal: Reports: Nausea, Vomiting. Denies: Abdominal Pain, Constipation, Diarrhea Genitourinary: Denies: Dysuria, Frequency, Incontinence, Nocturia Musculoskeletal: Denies: Joint Pain, Joint stiffness, Joint swelling, Joint Tenderness Skin: Reports: - - left buttocks swelling Neurological: Denies: Difficulty swallowing, Focal weakness, Numbness, Tingling Psychiatric: Denies: Anxiety, Depression, Homicidal Ideations, Suicidal Ideations Endocrine: Denies: Change in Body Habitus, Heat/ Cold Intolerance Hematologic/ Lymphatic: Denies: Easy Bruising, Easy Bleeding VTE Information - Inpt Only VTE Present on Admission: No VTE Pharm Prophylaxis ordered?: Yes Patient Problems: Active and Suspected Problems DKA (diabetic ketoacidoses) (Acute) Abscess (Acute) Hyperlipidemia (Acute) - Physical Exam Vitals/I&O's: Vital Signs Temp Pulse Resp BP Pulse Ox 98.5 F 89 18 116/76 100 05/26/20 14:58 05/26/20 14:58 05/26/20 14:58 05/26/20 14:58 05/26/20 14:58 Oxygen Delivery Method Room Air Weight: 82.5 kg Body Mass Index (BMI) 25.3 Finger Stick Blood Glucose 407 Intake and Output for Last 24 Hours 05/24/20 05/25/20 05/26/20 23:59 23:59 23:59 Intake Total 1000 / 1000 Balance 1000 / 1000 General: Alert, Oriented x3, Cooperative, Lethargic, - - inb mild distress HEENT: Atraumatic, PERRLA, EOMI, Normocephalic Oral: Dry Mucosa Neck: Supple Lungs: Clear to auscultation, Normal air movement Cardiovascular: Regular rate, Regular Rhythm, Normal S1, Normal S2, No murmurs Abdomen: Bowel Sounds Present, Soft, Non Tender, Non-Distended, No Hepato- splenomegaly Extremities: No edema Skin: - - s/p left erythema of left buttock, tender, fluctuant Musculoskeletal: No Tenderness to Palpation of Joints or Extremities Lymphatic: No Cervical, Supraclavicular, or Inguinal Adenopathy Neurological: Cranial nerves II-XII grossly intact, Neuro grossly intact Psych/Mental Status: Normal Affect, Appropriate Laboratory Results 05/26/20 16:00: WBC 5.4, RBC 4.60, Hgb 12.9 L, Hct 40.8, MCV 88.7, MCH 28.0, MCHC 31.6 L, RDW Std Deviation 41.9, RDW Coeff of Nicole 13.0, Plt Count 227, MPV 9.2, Immature Gran % (Auto) 0.400, Neut % (Auto) 74.3 H, Lymph % (Auto) 11.3 L, Pitkin % (Auto) 12.4 H, Eos % (Auto) 0.9, Baso % (Auto) 0.7, Absolute Neuts (auto) 4.0, Absolute Lymphs (auto) 0.61 L, Nucleated RBC % 0 05/26/20 16:00: Sodium 133 L, Potassium 4.9, Chloride 97 L, Carbon Dioxide 16.0 L, Anion Gap 20 H, BUN 9, Creatinine 0.92, Estim Creat Clear Calc 123.91, Est GFR (MDRD) Af Amer 122, Est GFR (MDRD) Non-Af 101, BUN/Creatinine Ratio 9.8 L, Glucose 369 H, Calcium 8.5 05/26/20 16:48: Acetone Level MODERATE H 05/26/20 18:32: POC Glucose 407 H Current Medications Dextrose (D50w Syringe) 0 gm IV X1 PRN; Protocol PRN Reason: Hypoglycemia Protocol Sodium Chloride () 1,000 mls @ 999 mls/hr IV .Q1H1M ONE Stop: 05/26/20 19:57 Insulin Human Lispro 100 unit/ (Sodium Chloride) 100 mls @ 8.25 mls/hr IV .Q12H8M DAVID; Protocol Assessment/Plan All Active Problems DKA (diabetic ketoacidoses) (Acute) Abscess (Acute) Hyperlipidemia (Acute) 1. Acute DKA, in a known type I DM patient. Patient insists that he has been taking his medications Likely etiology for the DKA would be secondary to #2 Anion gap is 20, serum bicarbonate is 16, moderate serum acetone Started on insulin drip, will admit to ICU on DKA protocol We will monitor BMP every 4h and replace electrolytes 2. Left gluteal abscess status post I&D on 05/25/20, discharged on Bactrim Patient refused perineal exam. We will get CT of the abdomen and pelvis Continue on IV Cipro and Flagyl Consider surgical consult if patient has abscess or has an anorectal fistula 3. Hyponatremia, likely pseudohyponatremia, Na 133 Will repeat BMP per DKA protocol 4. Hypertension, controlled, will hold home lisinopril May resume later when patient is more stable 5. Hyperlipidemia, continue on statin 6. DVT prophylaxis with early ambulation Inpatient E&M: [id number] Init Hosp L3
--- NOTE | 2020-05-26 19:27 | ED.RN ---
Patient refused ABG. Dr Bundy notified. No new orders at this time.
[2020-05-26] MEDS: proMETHazine 25 MG/ML Syringe 12.5 MG IV (19:57)
--- NOTE | 2020-05-26 20:26 | CT_ITS ---
STUDY: CT ABDOMEN AND PELVIS WITH CONTRAST REASON FOR EXAM: Male, 29 years old. buttock abscess drained yesterday in ed, pt back today for pain, n/v, pt is diabetic, acute dka,concern for abscess or fistula RADIATION DOSAGE (If Supplied By Facility): CTDIvol = ( 13.91 ) mGy, DLP = ( 840.46 ) mGycm TECHNIQUE: Transaxial images were obtained from the dome of the diaphragm to the symphysis pubis without oral contrast. IV 100mL Isovue-370 was administered. Sagittal and coronal images were reconstructed. Individualized dose optimization techniques were used for this CT. COMPARISON: None. FINDINGS: The visualized lung bases are unremarkable. The visualized portions of the heart are within normal limits. Normal liver. Normal gallbladder and extrahepatic biliary system. Normal spleen. Normal pancreas. Normal bilateral adrenal glands. Normal right kidney. Normal left kidney. Normal visualized stomach. Normal small intestine. Normal colon. The appendix is visualized and appears normal. Normal abdominal aorta. Normal inferior vena cava. Normal retroperitoneum. Normal urinary bladder. Free pelvic fluid. Normal abdominal wall. Small amounts of air and induration are present in the left perianal region, compatible with given history of recently drained abscess. No residual well-formed abscess collection is seen at this time. Residual left buttock cellulitis. CT/Abdomen/Pelvis W IV Cont ONLY IMPRESSION: Postprocedural changes in the left perianal region. No residual or recurrent abscess is visible. Residual left buttock cellulitis. Free pelvic fluid. Electronically Signed: Joaquin Lynch MD at 22:00 EDT Tel , Service support ,
[2020-05-26 21:00] LABS: Bedside Glucose 326 mg/dL (70-110)
[2020-05-26 21:10] LABS: Hemoglobin A1c 11.5 % (3.8-5.6)
[2020-05-26] MEDS: 0.9% Normal Saline 1,000 ML 250 ML IV (21:21)
[2020-05-26] MEDS: metroNIDAZOLE 500 MG/100 ML BAG 100 MG IV (21:21)
[2020-05-26 21:55] LABS: Bedside Glucose 264 mg/dL (70-110)
[2020-05-26 22:05] LABS: Anion Gap 19 (5-15); BUN 11 mg/dL (7-18); BUN/Creat Ratio 12.8 RATIO (10-20); Calcium,Total 8.1 mg/dL (8.5-10.1); Chloride 107 mmol/L (98-107); Creatinine, Serum 0.86 mg/dL (0.70-1.30); EST Glomerular Filtration Rate 110 mL/min (>60); Est Glom Filt Rate - Afr Amer 133 mL/min (>60); Estimated Creatinine Clearance 132.55 ml/min; Glucose 277 mg/dL (74-106); Potassium 4.5 mmol/L (3.5-5.1); Sodium Level 136 mmol/L (136-145)
[2020-05-26] MEDS: Ciprofloxacin 400 MG/200 ML BAG 200 MG IV (22:27)
--- NOTE | 2020-05-26 22:57 | NURSING ---
2235: BLOOD SUGAR CHECK =231. DC'D NORMAL SALINE MAINTENANCE AND STARTED D51/2 NS @ 150 CC/HR PER DVT PROTOCOL.
[2020-05-26] MEDS: Dext 5%-0.45% NS 1,000 ML 150 ML IV (23:05)
[2020-05-26 23:15] LABS: Bedside Glucose 231 mg/dL (70-110)
[2020-05-26 23:20] LABS: Amphetamine Urine VISTA POSITIVE (<1000 ng/mL); Barbiturate Urine VISTA NEGATIVE (< 200 ng/mL); Benzodiazepine Urine VISTA NEGATIVE (< 200 ng/mL); Cocaine Urine VISTA NEGATIVE (< 300 ng/mL); Ecstacy Urine VISTA NEGATIVE (< 500 ng/mL); Methadone Urine VISTA NEGATIVE (< 300 ng/mL); PCP Urine VISTA NEGATIVE (< 25 ng/mL); THC Urine VISTA NEGATIVE (< 50 ng/mL); Vista UDS pH Range 5
[2020-05-26 23:41] LABS: Bedside Glucose 232 mg/dL (70-110)
[2020-05-27] VITALS (19 sets, daily range): BP systolic 92–116; BP diastolic 47–71; PULSE 74–88; RESP 15–28; TEMP 36.4–36.9; O2SAT 96–100
[2020-05-27 00:41] LABS: Bedside Glucose 206 mg/dL (70-110)
[2020-05-27 01:46] LABS: Bedside Glucose 192 mg/dL (70-110)
[2020-05-27 01:59] LABS: Anion Gap 11 (5-15); BUN 10 mg/dL (7-18); Calcium,Total 7.9 mg/dL (8.5-10.1); Chloride 108 mmol/L (98-107); Creatinine, Serum 0.91 mg/dL (0.70-1.30); EST Glomerular Filtration Rate 103 mL/min (>60); Est Glom Filt Rate - Afr Amer 125 mL/min (>60); Estimated Creatinine Clearance 125.27 ml/min; Glucose 207 mg/dL (74-106); Potassium 4.6 mmol/L (3.5-5.1); Sodium Level 137 mmol/L (136-145)
[2020-05-27] MEDS: metroNIDAZOLE 500 MG/100 ML BAG 100 MG IV ×2 (05:41→15:07)
[2020-05-27] MEDS: Dext 5%-0.45% NS 1,000 ML 150 ML IV (05:47)
[2020-05-27 05:52] LABS: Absolute Neutrophil Count 3.5 X10^3/uL (2.0-7.7); Basophil# 0.03 X10^3/uL; Basophil% 0.5 % (0-1); Eosinophil# 0.13 X10^3/uL; Eosinophils% 2.2 % (0-5); Hematocrit 36.4 % (40-54); Hemoglobin 11.9 g/dL (13.0-16.5); Lymphocyte % 20.3 % (19-41); Mean Corp Hgb Conc 32.7 g/dL (32-36); Mean Corpuscular Hgb 28.5 pg (27.0-32.0); Mean Corpuscular Volume 87.1 fL (80-94); Mean Platelet Vol. 9.2 fl (6.2-12.0); Monocyte# 0.99 X10^3/uL; Monocyte% 16.8 % (0-10); NRBC Flagged by Analyzer 0 % (0-5); Neutrophil # 3.53 X10^3/uL (2.7-7.7); Neutrophil % 59.7 % (47-70); Platelet Count 259 K/mm3 (150-450); RBC Distribution Width CV 13.1 % (11.6-14.6); RBC Distribution Width SD 41.4 fl (35.1-43.9); Red Blood Count 4.18 M/mm3 (4.6-6.2); White Blood Count 5.9 K/mm3 (4.4-11.0)
[2020-05-27 06:15] LABS: ALB/GLOB Ratio 0.6 RATIO (0.9-2.4); AST(SGOT) 21 U/L (15-37); Alanine Aminotransfer ALT/SGPT 25 U/L (16-61); Albumin, Serum 2.2 g/dL (3.2-5.0); Alkaline Phosphatase 137 U/L (45-117); Anion Gap 9 (5-15); BUN 8 mg/dL (7-18); BUN/Creat Ratio 9.2 RATIO (10-20); Calcium,Total 7.9 mg/dL (8.5-10.1); Chloride 106 mmol/L (98-107); Creatinine, Serum 0.87 mg/dL (0.70-1.30); EST Glomerular Filtration Rate 109 mL/min (>60); Est Glom Filt Rate - Afr Amer 131 mL/min (>60); Estimated Creatinine Clearance 131.03 ml/min; Globulin 3.6 g/dL (2.2-4.2); Glucose 140 mg/dL (74-106); Potassium 3.9 mmol/L (3.5-5.1); Protein, Total 5.8 g/dL (6.4-8.2); Sodium Level 137 mmol/L (136-145)
--- NOTE | 2020-05-27 06:40 | NURSING ---
BMP RESULTS: K LEVEL NOTED AT 3.9. ORDERED KCL 10 MEQ/100ML X 4 BAGS PER DKA PROTOCOL.
[2020-05-27 06:45] LABS: Bedside Glucose 162 mg/dL (70-110)
[2020-05-27 06:46] LABS: Bedside Glucose 140 mg/dL (70-110)
[2020-05-27] MEDS: Potassium Chloride 10mEq/100mL 10 MEQ/100 ML IV.SOLN. 100 MEQ IV BOLUS ×2 (06:55→08:43)
[2020-05-27 07:31] LABS: Bedside Glucose 124 mg/dL (70-110)
[2020-05-27 09:36] LABS: Bedside Glucose 109 mg/dL (70-110)
[2020-05-27] MEDS: Ciprofloxacin 400 MG/200 ML BAG 200 MG IV (10:08)
[2020-05-27] MEDS: Gabapentin 400 MG Capsule PO ×3 (10:09→16:57)
[2020-05-27] MEDS: Lisinopril 5 MG Tablet PO (10:09)
[2020-05-27] MEDS: Amitriptyline 25 MG Tablet PO (10:09)
[2020-05-27] MEDS: Potassium Chloride 10mEq/100mL 10 MEQ/100 ML IV.SOLN. 50 MEQ IV BOLUS (10:28)
--- NOTE | 2020-05-27 10:49 | PCM.PN.HOSP ---
Patient Problems: Active and Suspected Problems DKA (diabetic ketoacidoses) (Acute) Abscess (Acute) Hyperlipidemia (Acute) Reason for Visit: DKA Subjective: States that he not felt well for several days and his blood sugar have been in the 250s-300s. He states that normally his blood sugars range from 70-130. He says that he is compliant with his insulin and has not missed any doses. Vitals/I&O's: Vital Signs Temp Pulse Resp BP Pulse Ox 36.4 C L 79 28 H 101/47 L 97 05/27/20 08:44 05/27/20 10:00 05/27/20 10:00 05/27/20 10:00 05/27/20 10:00 Oxygen Delivery Method Room Air Weight: 78.2 kg Body Mass Index (BMI) 23.9 Finger Stick Blood Glucose 124 Intake and Output for Last 24 Hours 05/25/20 05/26/20 05/27/20 23:59 23:59 23:59 Intake Total 2709.32 / 2709.32 194. / 1944. Output Total 850 / 850 0 / 0 Balance 1859.32 / 1859.32 1944. / 1944. General: No apparent distress, - - sleeping. awoke, but did not establish eye contact. obviously annoyed that I awoke him up. HEENT: Atraumatic, Normocephalic Psych/Mental Status: Flat Affect Laboratory Results 05/26/20 16:00: WBC 5.4, RBC 4.60, Hgb 12.9 L, Hct 40.8, MCV 88.7, MCH 28.0, MCHC 31.6 L, RDW Std Deviation 41.9, RDW Coeff of Nicole 13.0, Plt Count 227, MPV 9.2, Immature Gran % (Auto) 0.400, Neut % (Auto) 74.3 H, Lymph % (Auto) 11.3 L, [place] % (Auto) 12.4 H, Eos % (Auto) 0.9, Baso % (Auto) 0.7, Absolute Neuts (auto) 4.0, Absolute Lymphs (auto) 0.61 L, Nucleated RBC % 0 05/26/20 16:00: Sodium 133 L, Potassium 4.9, Chloride 97 L, Carbon Dioxide 16.0 L, Anion Gap 20 H, BUN 9, Creatinine 0.92, Estim Creat Clear Calc 123.91, Est GFR (MDRD) Af Amer 122, Est GFR (MDRD) Non-Af 101, BUN/Creatinine Ratio 9.8 L, Glucose 369 H, Calcium 8.5 05/26/20 16:00: Hemoglobin A1c 11.5 H 05/26/20 16:48: Acetone Level MODERATE H 05/26/20 18:32: POC Glucose 407 H 05/26/20 20:38: POC Glucose 326 H 05/26/20 20:50: Sodium Cancelled, Potassium Cancelled, Chloride Cancelled, Carbon Dioxide Cancelled, Anion Gap Cancelled, BUN Cancelled, Creatinine Cancelled, Estim Creat Clear Calc Cancelled, Est GFR (MDRD) Af Amer Cancelled, Est GFR (MDRD) Non-Af Cancelled, BUN/Creatinine Ratio Cancelled, Glucose Cancelled, Calcium Cancelled 05/26/20 21:24: POC Glucose 264 H 05/26/20 21:25: Sodium 136, Potassium 4.5, Chloride 107, Carbon Dioxide 10.0 L, Anion Gap 19 H, BUN 11, Creatinine 0.86, Estim Creat Clear Calc 132.55, Est GFR (MDRD) Af Amer 133, Est GFR (MDRD) Non-Af 110, BUN/Creatinine Ratio 12.8, Glucose 277 H, Calcium 8.1 L 05/26/20 22:37: POC Glucose 231 H 05/26/20 22:45: Urine Opiates Screen NEGATIVE, Urine Methadone Screen NEGATIVE, Ur Barbiturates Screen NEGATIVE, Ur Phencyclidine Scrn NEGATIVE, Ur Amphetamines Screen POSITIVE H, U Methamphetamin-MDMA NEGATIVE, U Benzodiazepines Scrn NEGATIVE, Urine Cocaine Screen NEGATIVE, U Cannabinoids Screen NEGATIVE, Ur Drug Screen Comment 05/26/20 23:30: POC Glucose 232 H 05/27/20 00:31: POC Glucose 206 H 05/27/20 01:25: Sodium 137, Potassium 4.6, Chloride 108 H, Carbon Dioxide 18.0 L, Anion Gap 11, BUN 10, Creatinine 0.91, Estim Creat Clear Calc 125.27, Est GFR (MDRD) Af Amer 125, Est GFR (MDRD) Non-Af 103, BUN/Creatinine Ratio 11.0, Glucose 207 H, Calcium 7.9 L 05/27/20 01:29: POC Glucose 192 H 05/27/20 03:37: POC Glucose 162 H 05/27/20 05:25: WBC 5.9, RBC 4.18 L, Hgb 11.9 L, Hct 36.4 L, MCV 87.1, MCH 28.5, MCHC 32.7, RDW Std Deviation 41.4, RDW Coeff of Nicole 13.1, Plt Count 259, MPV 9.2, Immature Gran % (Auto) 0.500, Neut % (Auto) 59.7, Lymph % (Auto) 20.3, [place] % (Auto) 16.8 H, Eos % (Auto) 2.2, Baso % (Auto) 0.5, Absolute Neuts (auto) 3.5, Absolute Lymphs (auto) 1.20, Nucleated RBC % 0 05/27/20 05:25: Sodium 137, Potassium 3.9, Chloride 106, Carbon Dioxide 22.0, Anion Gap 9, BUN 8, Creatinine 0.87, Estim Creat Clear Calc 131.03, Est GFR (MDRD) Af Amer 131, Est GFR (MDRD) Non-Af 109, BUN/Creatinine Ratio 9.2 L, Glucose 140 H, Calcium 7.9 L, Total Bilirubin 0.20, AST 21, ALT 25, Alkaline Phosphatase 137 H, Total Protein 5.8 L, Albumin 2.2 L, Globulin 3.6, Albumin/Globulin Ratio 0.6 L 05/27/20 05:37: POC Glucose 140 H 05/27/20 07:27: POC Glucose 124 H 05/27/20 09:21: POC Glucose 109 Current Medications Acetaminophen (Tylenol) 650 mg PO Q6H PRN PRN PRN Reason: Pain Score 1-10/Temp > 100.7 F Al Hydroxide/Mg Hydroxide (Mylanta Ii) 30 ml PO Q6H PRN PRN PRN Reason: Gastric Burning Amitriptyline HCl (Elavil) 25 mg PO DAILY [facility] Last Admin: 05/27/20 10:09 Dose: 25 mg Documented by: Dextrose (D50w Syringe) 0 gm IV X1 PRN; Protocol PRN Reason: HYPOGLYCEMIA Gabapentin (Neurontin) 400 mg PO TIDCM [facility] Last Admin: 05/27/20 10:09 Dose: 400 mg Documented by: Sodium Chloride () 1,000 mls @ 75 mls/hr IV .[id number] [facility] Last Admin: 05/26/20 23:06 Dose: Not Given Documented by: Ciprofloxacin (Cipro) 400 mg in 200 mls @ 200 mls/hr IV Q12 [facility] Last Admin: 05/27/20 10:08 Dose: 200 mls/hr Documented by: Metronidazole (Flagyl) 500 mg in 100 mls @ 100 mls/hr IV Q8 [facility] Last Infusion: 05/27/20 06:56 Dose: Infused Documented by: Sodium Chloride () 250 mls @ 15 mls/hr IV .[id number] PRN PRN Reason: Saline Flush Last Infusion: 05/27/20 09:30 Dose: 0 mls/hr Documented by: Sodium Chloride () 250 mls @ 15 mls/hr IV .[id number] PRN PRN Reason: Additional IVPB Infusion Dextrose/Sodium Chloride () 1,000 mls @ 150 mls/hr IV .[id number] [facility] Last Infusion: 05/27/20 09:29 Dose: Infused Documented by: Insulin Glargine (Lantus ([facility])) 30 units SC QHS [facility] Last Admin: 05/27/20 09:22 Dose: 30 units Documented by: Insulin Human Lispro (Humalog Kwikpen ([facility])) 20 unit SC TIDCM [facility] Lisinopril (Zestril) 5 mg PO DAILY [facility] Last Admin: 05/27/20 10:09 Dose: 5 mg Documented by: Nicotine (Nicoderm Cq ([facility])) 21 mg TRANSDERM. DAILY [facility] Last Admin: 05/27/20 10:10 Dose: Not Given Documented by: Nicotine Polacrilex (Rugby Nicotine ([facility])) 2 mg PO Q2H PRN PRN PRN Reason: Nicotine Craving Oxycodone HCl (Oxyir) 5 mg PO Q4H PRN PRN PRN Reason: Pain Score 4-10/10 Pravastatin Sodium (Pravachol) 40 mg PO DAILY@2200 [facility] Last Admin: 05/26/20 23:07 Dose: Not Given Documented by: Senna/Docusate Sodium (Senokot-S, Josefa-Colace) 2 tablet PO BID PRN PRN Reason: Constipation Sodium Chloride () 10 - 40 ml IV UD PRN PRN Reason: SALINE FLUSH Trazodone HCl (Desyrel) 50 mg PO DAILY@2200 [facility] Last Admin: 05/26/20 23:07 Dose: Not Given Documented by: STROKE Vital Signs/Narrative: Vital Signs Temp Pulse Resp BP BP Pulse Ox 05/27/20 10:00 79 28 H 101/47 L 97 05/27/20 08:44 36.4 C L 76 18 97/53 L 99 05/27/20 07:35 99 05/27/20 07:17 74 05/27/20 07:00 36.4 C L 76 17 92/49 L 98 Medical Necessity - Tobacco Use Smoking Status: Current every day smoker Tobacco Use: Cigarettes Assessment/Plan All Active Problems DKA (diabetic ketoacidoses) (Acute) Abscess (Acute) Hyperlipidemia (Acute) 1. DKA resolved resume basal and prandial insulin and take off insulin gtt if remains stable he can be discharged. A1c is 11.5. I am skeptical that his blood sugar is normally 70-130 and/or that he has not missed any insulin doses. He claims to have insulin at home. of note, it does not appear that his blood sugar was checked on the ER visit on 05/25 2. perirectal abscess I+D performed on 05/25, no culture performed was discharged with trimethoprim/sulfamethoxazole here is on ciprofloxacin and metronidazole Inpatient E&M: [id number] [facility] Hosp L2
[2020-05-27] MEDS: oxyCODONE 5 MG Tablet PO ×2 (11:35→16:56)
[2020-05-27] MEDS: Insulin Lispro 100 UNIT/ML INSULN.PEN 20 UNIT SC ×2 (12:20→16:56)
[2020-05-27 12:31] LABS: Bedside Glucose 305 mg/dL (70-110)
--- NOTE | 2020-05-27 13:30 | CASEMGMT ---
RN DORIS Face to Face with patient for initial transition planning/care coordination assessment. RN DORIS introduced self and role at [facility]. Patient lying in bed, alert and oriented. Patient willing to participate in assessment and is able to answer all questions appropriately. Care providers, pharmacy, and demographics verified. Patient wishes to discharge to community. Patient states he has no further needs or concerns at this time. CM to follow for discharge planning needs that may arise. PCP: Mai Ahumada Specialists: none Preferred Pharmacy: [facility] Insurance: [employer] Prescription Benefit: yes Living Will/HPOA: none LNOK: significant other, mother and step father Living Arrangements: Patient states he is currently homeless. Has been staying at [facility] but states he was kicked out for not having his insulin locked up. CM updated SW regarding homeless and request for resources Transportation: none, public DME/HHC: Patient states he has his glucometer, testing supplies, and insulin. Disposition Plan: Patient to discharge into community with follow-up plans and additional resources. Nicolle TALBOTN, RN, CM
--- NOTE | 2020-05-27 14:45 | CASEMGMT ---
SOCIAL WORK Updated on referral by nursing. Per nursing, patient was kicked out of homeless correction. Call to Patricia with [facility]. Per Patricia, patient was dismissed from correction due to not complying with rules. Patricia reports clients are required to lock up medications. Patient had narcotics and would not provide med list to lock up medications. Patricia reports would need to discuss with dental practice manager on whether or not patient able to come back to correction. Patricia states correction is currently full. Met with patient in room. Patient alert and oriented. Informed patient of this workers conversation with [facility]. Discussed options and limitations due to it being the weekend. Patient with limited eye contact. Patient stating, I can't be on the streets with my medications. Support provided. Encouraged patient to follow up with [facility]. Nursing updated on the above. Vijay Farooq MSW, PRODUCT SCIENTIST
[2020-05-27 15:26] LABS: Bedside Glucose 236 mg/dL (70-110)
--- NOTE | 2020-05-27 15:28 | PCM.DC ---
- Discharge Diagnoses Current Active Problems: Current Active and Chronic Problems DKA (diabetic ketoacidoses) (Acute) Abscess (Acute) Hypertension (Chronic) Hyperlipidemia (Acute) DM type 1 (diabetes mellitus, type 1) (Chronic) You will use the following diet at home:: Calorie/Carbohydrate Controlled (specify 1200, 1400, etc) - 1800 Discharge Activity: Return to Normal Activity Call your doctor if you observe: Fever of 101 or Higher, - - uncontrolled blood sugar. worsening buttock pain/swelling. Allergies/Adverse Reactions: Allergies No Known Allergies Allergy (Verified 05/26/20 15:03) Medications to take at Discharge Amitriptyline HCl 25 mg PO DAILY 03/08/20 Insulin Aspart [Novolog Flexpen] 20 units SUBCUT TIDCM 03/08/20 Insulin Glargine [Lantus SoloStar Pen] 30 units SUBCUT QHS 03/08/20 Lisinopril 5 mg PO DAILY 03/08/20 Pravastatin [Pravachol] 40 mg PO DAILY 03/08/20 traZODone [Desyrel] 50 mg PO DAILY 03/08/20 Albuterol Inhaler [Ventolin Hfa] 2 puff INHALATION Q4H PRN PRN #1 inhaler 04/08/20 Blood Sugar Diagnostic [Glucose Test Strip] 1 ea MC 4X/DAY #120 strip 04/08/20 Gabapentin [Neurontin] 400 mg PO TID #90 cap 04/08/20 Oxycodone HCl/Acetaminophen [Percocet 5-325] 1 tab PO Q6H PRN PRN 3 Days #12 tab 05/25/20 Smz/Tmp Ds [Bactrim Ds] 1 tab PO BID #14 tab 05/25/20 Primary Care Physician: Mai Ahumada [Primary Care Provider] - Within 1 Week Test Results: Test results from this visit will be discussed in further detail at your follow-up appointment, if applicable. Proposed Discharge Date: 05/27/20
--- NOTE | 2020-05-27 15:29 | DS.PCM_ITS ---
Discharge Date and Diagnosis - Problem List Patient Problems: Active and Suspected Problems DKA (diabetic ketoacidoses) (Acute) Abscess (Acute) Hyperlipidemia (Acute) Date of Admission: 05/26/20 Date of Discharge: 05/27/20 - Primary Discharge Diagnosis Acute Problems: Active Problems DKA (diabetic ketoacidoses) (Acute) Abscess (Acute) Hyperlipidemia (Acute) - Secondary Discharge Diagnosis Chronic Problems: Chronic Problems Hypertension (Chronic) DM type 1 (diabetes mellitus, type 1) (Chronic) Hospital Course and Treatment Imaging Results: Clinical Impression(s) from Imaging Studies Abdomen/Pelvis CT 05/26/20 20:26 IMPRESSION: Postprocedural changes in the left perianal region. No residual or recurrent abscess is visible. Residual left buttock cellulitis. Free pelvic fluid. Electronically Signed: Joaquin Lynch MD at 22:00 EDT Tel , Service support , Consultations 05/26/20 20:26 Consult: Onc/Wound/paper gluing operator Routine Comment: Operations: None Procedures: None Summary of Care Provided: The patient is a 29 year old M presents with not feeling well and is found to be in diabetic ketoacidosis. Patient started on insulin drip which today was transitioned over to basal as well as prandial insulins. Blood sugar has improved overall. Patient states that his blood sugars typically run from 70s to the 130s but stated that recently that spent in the 250s of 300s. A1c was 11.5, making his claim that his blood sugars are well controlled at home unlikely. Patient presented on the to the ER for a gluteal abscess which was drained. Patient had a CAT scan here that showed no residual abscess. Patient was discharged from the ER with trimethoprim/sulfamethoxazole. Patient to continue with that. Patient claims that he has all his insulin supplies at home. Patient to continue with that regimen. Apparently the patient was recently kicked out of the homeless intermediate for unclear reasons. And patient wishing to be discharged as he is currently medically stable for discharge at this time. [] Patient Problems: Active and Suspected Problems DKA (diabetic ketoacidoses) (Acute) Abscess (Acute) Hyperlipidemia (Acute) - Physical Exam Vitals/I&O's: Vital Signs Temp Pulse Resp BP Pulse Ox 36.9 C 84 17 104/65 98 05/27/20 12:40 05/27/20 15:00 05/27/20 15:00 05/27/20 15:00 05/27/20 15:00 Oxygen Delivery Method Room Air Weight: 78.2 kg Body Mass Index (BMI) 23.9 Finger Stick Blood Glucose 124 Intake and Output for Last 24 Hours 05/25/20 05/26/20 05/27/20 23:59 23:59 23:59 Intake Total 2709.32 / 2709.32 2192.76 / 2192.76 Output Total 850 / 850 0 / 0 Balance 1859.32 / 1859.32 2192.76 / 2192.76 Laboratory Results 05/26/20 16:00: WBC 5.4, RBC 4.60, Hgb 12.9 L, Hct 40.8, MCV 88.7, MCH 28.0, MCHC 31.6 L, RDW Std Deviation 41.9, RDW Coeff of Nicole 13.0, Plt Count 227, MPV 9.2, Immature Gran % (Auto) 0.400, Neut % (Auto) 74.3 H, Lymph % (Auto) 11.3 L, [place] % (Auto) 12.4 H, Eos % (Auto) 0.9, Baso % (Auto) 0.7, Absolute Neuts (auto) 4.0, Absolute Lymphs (auto) 0.61 L, Nucleated RBC % 0 05/26/20 16:00: Sodium 133 L, Potassium 4.9, Chloride 97 L, Carbon Dioxide 16.0 L, Anion Gap 20 H, BUN 9, Creatinine 0.92, Estim Creat Clear Calc 123.91, Est GFR (MDRD) Af Amer 122, Est GFR (MDRD) Non-Af 101, BUN/Creatinine Ratio 9.8 L, Glucose 369 H, Calcium 8.5 05/26/20 16:00: Hemoglobin A1c 11.5 H 05/26/20 16:48: Acetone Level MODERATE H 05/26/20 18:32: POC Glucose 407 H 05/26/20 20:38: POC Glucose 326 H 05/26/20 20:50: Sodium Cancelled, Potassium Cancelled, Chloride Cancelled, Carbon Dioxide Cancelled, Anion Gap Cancelled, BUN Cancelled, Creatinine Cancelled, Estim Creat Clear Calc Cancelled, Est GFR (MDRD) Af Amer Cancelled, Est GFR (MDRD) Non-Af Cancelled, BUN/Creatinine Ratio Cancelled, Glucose Cancelled, Calcium Cancelled 05/26/20 21:24: POC Glucose 264 H 05/26/20 21:25: Sodium 136, Potassium 4.5, Chloride 107, Carbon Dioxide 10.0 L, Anion Gap 19 H, BUN 11, Creatinine 0.86, Estim Creat Clear Calc 132.55, Est GFR (MDRD) Af Amer 133, Est GFR (MDRD) Non-Af 110, BUN/Creatinine Ratio 12.8, Glucose 277 H, Calcium 8.1 L 05/26/20 22:37: POC Glucose 231 H 05/26/20 22:45: Urine Opiates Screen NEGATIVE, Urine Methadone Screen NEGATIVE, Ur Barbiturates Screen NEGATIVE, Ur Phencyclidine Scrn NEGATIVE, Ur Amphetamines Screen POSITIVE H, U Methamphetamin-MDMA NEGATIVE, U Benzodiazepines Scrn NEGATIVE, Urine Cocaine Screen NEGATIVE, U Cannabinoids Screen NEGATIVE, Ur Drug Screen Comment 05/26/20 23:30: POC Glucose 232 H 05/27/20 00:31: POC Glucose 206 H 05/27/20 01:25: Sodium 137, Potassium 4.6, Chloride 108 H, Carbon Dioxide 18.0 L , Anion Gap 11, BUN 10, Creatinine 0.91, Estim Creat Clear Calc 125.27, Est GFR (MDRD) Af Amer 125, Est GFR (MDRD) Non-Af 103, BUN/Creatinine Ratio 11.0, Glucose 207 H, Calcium 7.9 L 05/27/20 01:29: POC Glucose 192 H 05/27/20 03:37: POC Glucose 162 H 05/27/20 05:25: WBC 5.9, RBC 4.18 L, Hgb 11.9 L, Hct 36.4 L, MCV 87.1, MCH 28.5, MCHC 32.7, RDW Std Deviation 41.4, RDW Coeff of Nicole 13.1, Plt Count 259, MPV 9.2, Immature Gran % (Auto) 0.500, Neut % (Auto) 59.7, Lymph % (Auto) 20.3, [place]yman % (Auto) 16.8 H, Eos % (Auto) 2.2, Baso % (Auto) 0.5, Absolute Neuts (auto) 3.5, Absolute Lymphs (auto) 1.20, Nucleated RBC % 0 05/27/20 05:25: Sodium 137, Potassium 3.9, Chloride 106, Carbon Dioxide 22.0, Anion Gap 9, BUN 8, Creatinine 0.87, Estim Creat Clear Calc 131.03, Est GFR (MDRD) Af Amer 131, Est GFR (MDRD) Non-Af 109, BUN/Creatinine Ratio 9.2 L, Glucose 140 H, Calcium 7.9 L, Total Bilirubin 0.20, AST 21, ALT 25, Alkaline Phosphatase 137 H, Total Protein 5.8 L, Albumin 2.2 L, Globulin 3.6, Albumin/Globulin Ratio 0.6 L 05/27/20 05:37: POC Glucose 140 H 05/27/20 07:27: POC Glucose 124 H 05/27/20 09:21: POC Glucose 109 05/27/20 12:17: POC Glucose 305 H 05/27/20 15:22: POC Glucose 236 H Current Medications Acetaminophen (Tylenol) 650 mg PO Q6H PRN PRN PRN Reason: Pain Score 1-10/Temp > 100.7 F Al Hydroxide/Mg Hydroxide (Mylanta Ii) 30 ml PO Q6H PRN PRN PRN Reason: Gastric Burning Amitriptyline HCl (Elavil) 25 mg PO DAILY [facility] Last Admin: 05/27/20 10:09 Dose: 25 mg Documented by: Dextrose (D50w Syringe) 0 gm IV X1 PRN; Protocol PRN Reason: HYPOGLYCEMIA Gabapentin (Neurontin) 400 mg PO TIDCM [facility] Last Admin: 05/27/20 12:21 Dose: 400 mg Documented by: Sodium Chloride () 1,000 mls @ 75 mls/hr IV .[id number] [facility] Last Admin: 05/27/20 12:34 Dose: Not Given Documented by: Ciprofloxacin (Cipro) 400 mg in 200 mls @ 200 mls/hr IV Q12 [facility] Last Infusion: 05/27/20 11:08 Dose: Infused Documented by: Metronidazole (Flagyl) 500 mg in 100 mls @ 100 mls/hr IV Q8 [facility] Last Admin: 05/27/20 15:07 Dose: 100 mls/hr Documented by: Sodium Chloride () 250 mls @ 15 mls/hr IV .[id number] PRN PRN Reason: Saline Flush Last Infusion: 05/27/20 09:30 Dose: 0 mls/hr Documented by: Sodium Chloride () 250 mls @ 15 mls/hr IV .[id number] PRN PRN Reason: Additional IVPB Infusion Dextrose/Sodium Chloride () 1,000 mls @ 150 mls/hr IV .Q6H40M [facility] Last Admin: 05/27/20 12:35 Dose: Not Given Documented by: Insulin Glargine (Lantus ([facility])) 30 units SC QHS [facility] Last Admin: 05/27/20 09:22 Dose: 30 units Documented by: Insulin Human Lispro (Humalog Kwikpen ([facility])) 20 unit SC TIDCM [facility] Last Admin: 05/27/20 12:20 Dose: 20 unit Documented by: Lisinopril (Zestril) 5 mg PO DAILY [facility] Last Admin: 05/27/20 10:09 Dose: 5 mg Documented by: Nicotine (Nicoderm Cq ([facility])) 21 mg TRANSDERM. DAILY [facility] Last Admin: 05/27/20 10:10 Dose: Not Given Documented by: Nicotine Polacrilex (Rugby Nicotine ([facility])) 2 mg PO Q2H PRN PRN PRN Reason: Nicotine Craving Oxycodone HCl (Oxyir) 5 mg PO Q4H PRN PRN PRN Reason: Pain Score 4-10/10 Last Admin: 05/27/20 11:35 Dose: 5 mg Documented by: Pravastatin Sodium (Pravachol) 40 mg PO DAILY@2199 [facility] Last Admin: 05/26/20 23:07 Dose: Not Given Documented by: Senna/Docusate Sodium (Senokot-S, Josefa-Colace) 2 tablet PO BID PRN PRN Reason: Constipation Sodium Chloride () 10 - 40 ml IV UD PRN PRN Reason: SALINE FLUSH Trazodone HCl (Desyrel) 50 mg PO DAILY@2199 [facility] Last Admin: 05/26/20 23:07 Dose: Not Given Documented by: Discharge Diet: 1800 Calorie Control Diet Discharge Activity: Return to Normal Activity Call your doctor if you observe: Fever of 101 or Higher, - - uncontrolled blood sugar. worsening buttock pain/swelling. Home Medications: Medications to take at Discharge Amitriptyline HCl 25 mg PO DAILY 03/08/20 Insulin Aspart [Novolog Flexpen] 20 units SUBCUT TIDCM 03/08/20 Insulin Glargine [Lantus SoloStar Pen] 30 units SUBCUT QHS 03/08/20 Lisinopril 5 mg PO DAILY 03/08/20 Pravastatin [Pravachol] 40 mg PO DAILY 03/08/20 traZODone [Desyrel] 50 mg PO DAILY 03/08/20 Albuterol Inhaler [Ventolin Hfa] 2 puff INHALATION Q4H PRN PRN #1 inhaler 04/08/20 Blood Sugar Diagnostic [Glucose Test Strip] 1 ea MC 4X/DAY #120 strip 04/08/20 Gabapentin [Neurontin] 400 mg PO TID #90 cap 04/08/20 Oxycodone HCl/Acetaminophen [Percocet 5-325] 1 tab PO Q6H PRN PRN 3 Days #12 tab 05/25/20 Smz/Tmp Ds [Bactrim Ds] 1 tab PO BID #14 tab 05/25/20 Primary Care Physician: Mai Ahumada [Primary Care Provider] - Within 1 Week Disposition: Home Minutes spent on discharge:: 35 Patient Condition:: Fair Medical Necessity - Tobacco Use Smoking Status: Current every day smoker Tobacco Use: Cigarettes Meaningful Use Info Meaningful Use Diagnoses (Choose all that apply): None applicable Inpatient E&M: [id number] [facility] Hosp
--- NOTE | 2020-05-29 15:29 | CASEMGMT ---
SAMANTHA CM DC PHONE CALL DC DATE: 05/27/2020 DC DISPOSITION: unknown, possible homeless senior living DC DIAGNOSIS: DKA, Abscess LACE/STRATA: 30/12 F/U APPTS MADE PRIOR TO DC: No Attempted call to phone. Carrier message stated unable to complete call and no messaging was available. Shayna SAUL RN AC
== END 2020-05-27 17:30 | disposition home or self-care (01) | DRG 420 ==
LOC: ED 15:43 → ICU 19:22
PROVIDERS: Admitting Provider Internal Medicine; Emergency Provider Emergency Medicine; Referring Provider Internal Medicine
DX: E10.10 Type 1 diabetes mellitus with ketoacidosis without coma (principal); K61.0 Anal abscess; E10.40 Type 1 diabetes mellitus with diabetic neuropathy, unspecified; I10 Essential (primary) hypertension; J45.909 Unspecified asthma, uncomplicated; E78.5 Hyperlipidemia, unspecified; F17.210 Nicotine dependence, cigarettes, uncomplicated; Z79.4 Long term (current) use of insulin; Z79.899 Other long term (current) drug therapy; Z59.0 Homelessness
CPT/HCPCS: 74177; 80048; 80053; 80307; 82009; 82962; 83036; 85025; 96372; 97802; 99251; 99283; 99284; 99406; J7030; J7050; Q9967; A4216; G0463; J0744; J2405; J7799

== ENCOUNTER 2020-06-19 04:15 | Emergency (ER) | payer MEDICAID, SELFPAY ==
[2020-05-26 20:21] VITALS: BMI 23.9
[2020-06-19 04:16] VITALS: BP 125/81; PULSE 81; RESP 17; TEMP 36.4; O2SAT 100; BMI 24.8
[2020-06-19 04:18] VITALS: BP 125/81; PULSE 81; RESP 17; TEMP 36.4; O2SAT 100
--- NOTE | 2020-06-19 04:43 | ED.VIS.GEN ---
History of Present Illness Chief Complaint: Dental Informant: Patient Onset: Today Current Severity: Severe Maximum Severity: Severe Narrative: Patient presents with dental pain and facial swelling. He states a few nights ago he was eating fried chicken when a piece of his tooth broke off along the left upper surface of his mouth. He did not have any pain until he woke up this morning and noted significant facial swelling. He is tolerating secretions well and has a strong voice. He states blood sugar was in the 150s for EMS. - Past Medical History (1) Asthma Status: Chronic (2) Hyperlipidemia Status: Chronic (3) DM type 1 (diabetes mellitus, type 1) Status: Chronic (4) Hypertension Status: Chronic Past Medical History - Allergies and Home Meds Allergies/Adverse Reactions: Allergies No Known Allergies Allergy (Verified 06/19/20 04:19) Primary Care Physician: [facility] [Primary Care Provider] - Prior records reviewed: Yes Surgical History: tonsillectomy - and adenoidectomy Smoking Status: Current every day smoker - Family History Maternal Family History: Reports: COPD Paternal Family History: Reports: No pertinent history Review of Systems General: Denies: Chills, Fever Eyes: Denies: Visual changes - bilaterally ENT: Reports: - - Dental pain and facial swelling Cardiovascular: Denies: Chest pain Respiratory: Denies: Dyspnea, Cough Gastrointestinal: Denies: Abdominal pain, Nausea, Vomiting, Diarrhea Musculoskeletal: Denies: Extremity Pain Neurological: Denies: Headache Hematologic: Denies: Easy bruising, Easy bleeding Allergy: Denies: Uticaria Physical Exam Vital Signs/Narrative: Vital Signs Temp Pulse Resp BP Pulse Ox 06/19/20 04:16 97.5 F L 81 17 125/81 H 100 Inital Vital Signs reviewed: Yes General: Well nourished, Well developed Head: Normocephalic ENT: Moist mucous membranes, - - Intraoral examination reveals multiple dental caries with teeth decayed to the gumline on the left maxillary surface. Diffuse gum edema. Posterior pharynx examination is unremarkable. Uvula is midline. Submandibular space is soft with no sign of Ludin's angina. He does have left-sided facial edema but no overlying skin changes. Cardiovascular: Regular rate, Regular rhythm, No murmurs Respiratory: No distress, CTA bilaterally Abdomen: Soft, Nontender Neurological: Alert, Oriented x3 Psychological: Normal affect Diagnostic/Tx/Re-eval - Medical Decision Making Patient is given a dose of morphine and Zofran along with a dose of IV clindamycin. On repeat evaluation he is sleeping comfortably. His O2 sat is 98%. Patient will be given a prescription for clindamycin along with [place]. He will continue ibuprofen at home. He is encouraged to follow-up with dental at [facility] his primary care facility. ED Disposition - Plan for ED Patient: Disposition: Home or Assisted Living Diagnosis: Dental abscess Instructions: Dental Abscess Prescriptions: Clindamycin [Cleocin] 300 mg PO 4X/DAY #80 cap Transmission Status: Pending to [facility] Hydrocodone Bitart/Apap 5-325 [[place] 5MG-325MG] 1 tablet PO Q6H PRN PRN 3 Days #10 tablet PRN Reason: Pain Score 4-10/10 Transmission Status: Sent to [facility] Referrals: [facility] [Primary Care Provider] - As soon as possible Additional Instructions: Follow-up with the dental clinic at [facility] as soon as possible.
[2020-06-19] MEDS: Ondansetron 4 MG/2 ML Vial IV (04:58)
[2020-06-19] MEDS: Morphine 4 MG/ML Syringe IV (04:59)
[2020-06-19 05:18] VITALS: BP 120/83; PULSE 88; RESP 16; TEMP 36.6; O2SAT 98
[2020-06-19 06:16] VITALS: BP 120/83; PULSE 88; RESP 16; O2SAT 98
== END 2020-06-19 06:17 | disposition home or self-care (01) ==
PROVIDERS: Emergency Provider Emergency Medicine; Referring Provider Nurse Practitioner Family
DX: K04.7 Periapical abscess without sinus (principal); I10 Essential (primary) hypertension; E10.9 Type 1 diabetes mellitus without complications; E78.5 Hyperlipidemia, unspecified; J45.909 Unspecified asthma, uncomplicated; Z79.4 Long term (current) use of insulin; F17.200 Nicotine dependence, unspecified, uncomplicated; Z79.899 Other long term (current) drug therapy
CPT/HCPCS: 96365; 96375; 99285; J2405